=== PATIENT | male | born 1980 ===

== ENCOUNTER 2025-07-10 21:53 | Emergency (ER) | payer OTHER ==
[~2025-07-10] VITALS: Ht 165.1 cm; Wt 74.8 kg
[2025-07-10] MEDS ORDERED: Fluorescein Sod 1MG Opth Strips LEFTEYE SCH (23:50)
[2025-07-10] MEDS ORDERED: Tetracaine HCl/Pf 0.5% Opth Soln 4 ml RIGHTEYE ONE (23:50)
[2025-07-11] MEDS ORDERED: Tobramycin 0.3% Opth Soln 5 ML BOTHEYES ONE (01:10)
[2025-07-11] MEDS ORDERED: Tobrex5 ML BOTHEYES (01:10)
== END 2025-07-11 01:54 | disposition home or self-care (01) ==
LOC: ER 21:53
DX: S05.01XA Injury of conjunctiva and corneal abrasion without foreign body, right eye, initial encounter (principal); I10 Essential (primary) hypertension; X58.XXXA Exposure to other specified factors, initial encounter
CPT/HCPCS: 99283; A9270